=== PATIENT | male | born 1980 | race Caucasian/White ===

== ENCOUNTER 2019-04-17 15:31 | Emergency (ER) | payer OTHER ==
[~2019-04-17] VITALS: Ht 185.4 cm; Wt 115.9 kg
[~2019-04-17 15:31] MED LIST: ZOLOFT 25MG25 MG PO
[2019-04-17 15:38] VITALS: TEMP 98.3
[2019-04-17 17:40] VITALS: PULSE 81
== END 2019-04-17 17:40 | disposition home or self-care (01) ==
LOC: COL.ER 15:31
DX: S51.812A Laceration without foreign body of left forearm, initial encounter (principal); Z23 Encounter for immunization; Z88.1 Allergy status to other antibiotic agents; W25.XXXA Contact with sharp glass, initial encounter; Y92.59 Other trade areas as the place of occurrence of the external cause

== ENCOUNTER → 2019-04-28 | Outpatient (CLI) | payer SELFPAY ==
[2019-04-28 15:37] VITALS: BP 137/77; PULSE 79; TEMP 97.1
== END ==
LOC: COL.ER 15:33
DX: Z48.02 Encounter for removal of sutures (principal)